=== PATIENT | female | born 1975 | race Caucasian/White ===

== ENCOUNTER 2017-01-13 18:27 | Emergency (ER) | payer MEDICARE ==
--- NOTE | ~2017-01-13 | ER ---
PATIENT'S NAME: MARQUEZ POON [facility] AGE: 41 Y [address] ROOM: [place] [address] LOCATION: [facility] ADMIT DATE: 01/13/2017 ER/Outpatient Report DISCHARGE DATE: 01/13/2017 FAMILY PHYSICIAN: PHYSICIAN, NO ATTENDING PHYSICIAN: Mani Lezama Time of Arrival: 1827 hours. Time of Evaluation: 1850 hours. CHIEF COMPLAINT: This is a 41-year-old female with a history of spina bifida, chronic indwelling Ramirez catheter and repeat urinary infections, in with complaint of suprapubic pain and foul-smelling urine for the past 2 days. She also states that she had a fall 2 days ago and has had pelvic pain since then. 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 CURRENT MEDICATIONS: See list. REVIEW OF SYSTEMS: Otherwise negative. SOCIAL HISTORY: She recently moved to the area. PHYSICAL EXAMINATION: GENERAL: Alert and cooperative female in no acute distress. VITAL SIGNS: Stable. She is afebrile. SKIN: Warm and dry. Color is normal. ABDOMEN: Soft and nontender. BACK: Had previous surgical scars. She had no bruising of her lower back or buttocks. 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 She had incompletely formed inferior pubic rami. A fracture of the TH could not be determined. I questioned the patient regarding previous hospitalizations and visits and the patient refused to answer questions about where she had been seen before and where x-rays could be obtained for comparison. MEDICAL DECISION MAKING: The patient is nonweightbearing. I suspect if the changes on her pelvis x-ray PATIENT'S NAME: MARQUEZ POON [facility] AGE: 41 Y [address] ROOM: [place] [address] LOCATION: [facility] ADMIT DATE: 01/13/2017 ER/Outpatient Report DISCHARGE DATE: 01/13/2017 FAMILY PHYSICIAN: PHYSICIAN, ROXANNA ATTENDING PHYSICIAN: Mani Lezama are old, the radiologist will review the pelvis x-rays. In the meantime, the patient will be treated with Cipro 500 mg 4 times a day for her urinary infection and she will be given small number of Vicodin. I am concerned that the patient is narcotic-seeking given her refusal to answer questions about her previous hospitalization. ASSESSMENT: 1. Urinary tract infection. 2. Fall with resultant pelvis pain. PLAN: As outlined above. MANI LEZAMA MD JDB/modl /[id number] d: 01/14/17 0439 t: 01/16/17 0444, OUTPATIENT REPORT
[2017-01-13 20:30] LABS: BILIRUBIN URINE NEGATIVE (NEGATIVE); BLOOD URINE 10 /UL (NEGATIVE); COLOR URINE YELLOW (YELLOW); GLUCOSE URINE NEGATIVE (NEGATIVE); KETONE URINE 50 mg/dL (NEGATIVE); LEUKOCYTES URINE 500 /UL (NEGATIVE); NITRITE URINE POSITIVE (NEGATIVE); PROTEIN URINE 30 mg/dL (NEGATIVE); SPEC GRAVITY URINE 1.025 (1.003-1.035); TURBIDITY URINE CLEAR (CLEAR); UROBILINOGEN URINE 1 mg/dL (NORMAL)
[2017-01-13 20:51] LABS: WBC URINE 20-50 #/HPF (NEGATIVE)
[2017-01-13 20:52] LABS: AMORPHOUS URINE 2+ (NEGATIVE); BACTERIA URINE MANY (NEGATIVE); CRYSTALS URINE CALCIUM OXALATE (NEGATIVE); MUCUS URINE 3+ (NEGATIVE); YEAST URINE MODERATE (NEGATIVE)
== END 2017-01-13 22:02 | disposition disaster alternative care site (69) ==
LOC: GMED 18:27
PROVIDERS: Emergency Medicine
PROC: 0T2BX0Z Change Drainage Device in Bladder, External Approach (ICD-10-PCS; principal; 2017-01-13)
DX: N39.0 Urinary tract infection, site not specified (principal); R10.2 Pelvic and perineal pain; Z98.2 Presence of cerebrospinal fluid drainage device; Z87.39 Personal history of other diseases of the musculoskeletal system and connective tissue; Z88.0 Allergy status to penicillin; Z88.5 Allergy status to narcotic agent; Z88.8 Allergy status to other drugs, medicaments and biological substances; W19.XXXA Unspecified fall, initial encounter

== ENCOUNTER 2017-01-21 18:28 | Emergency (ER) | payer MEDICARE ==
--- NOTE | ~2017-01-21 | ER ---
PATIENT'S NAME: MARQUEZ POON [facility] AGE: 41 Y [address] ROOM: [place] [address] LOCATION: ED ADMIT DATE: 01/21/2017 ER/Outpatient Report DISCHARGE DATE: 01/21/2017 FAMILY PHYSICIAN: PHYSICIAN, NO ATTENDING PHYSICIAN: Binu Lee Time of Evaluation: 1840 hours. HISTORY OF PRESENT ILLNESS: The patient is a 41-year-old female with history of spina bifida, neurogenic bladder. The patient today while being moved from her wheelchair, her catheter got caught causing some traction on it, causing pain. The patient states she usually gets her catheter replaced every month, and it is almost two. The patient was in the emergency room here recently and was put on Cipro for a UTI; however, she has been unable to afford the medication. ALLERGIES: ALLERGIC TO LATEX. CURRENT MEDICATIONS: She is taking none. MEDICAL HISTORY: Spina bifida, fibromyalgia, depression, posttraumatic stress disorder, chronic anxiety, brittle bone syndrome. She has had previous intracranial bleed, hydrocephalus with MODEL BUILDER shunt, chronic urinary tract infections, urinary and fecal incontinence. SURGERIES: Include right hip. SOCIAL HISTORY: Smoker, half pack a day. Denies alcohol. She states she just recently moved here from [place] and is currently getting no medical care. REVIEW OF SYSTEMS: CONSTITUTIONAL: No fever or chills today. RESPIRATORY: Denies any cough or wheezing. GASTROINTESTINAL: No nausea or vomiting. GENITOURINARY: She has a Ramirez catheter. PHYSICAL EXAMINATION: VITAL SIGNS: Blood pressure 151/80, her temperature is 97.4, pulse 76, her O2 sats 99%. GENERAL: The patient is alert and cooperative. PATIENT'S NAME: MARQUEZ POON [facility] AGE: 41 Y [address] ROOM: [place] [address] LOCATION: [facility] ADMIT DATE: 01/21/2017 ER/Outpatient Report DISCHARGE DATE: 01/21/2017 FAMILY PHYSICIAN: PHYSICIAN, NO ATTENDING PHYSICIAN: Binu Lee HEENT: Teeth appear in poor condition. LUNGS: Lung sounds are clear. ABDOMEN: Slightly tender lower. She has previous scars. Catheter was in place. It did have some blackish material in the catheter. ASSESSMENT: 1. Replace Ramirez catheter. 2. Spina bifida with neurogenic bladder. 3. Brittle bone disease. 4. Depression, anxiety with posttraumatic stress disorder. 5. Previous head bleed. 6. History of hydrocephalus with ventriculoperitoneal shunt. 7. Tobacco abuse. PLAN: The catheter was replaced without much difficulty. [facility]. Continue to work with social service concerning her medical care. CONSTANCE HAAS FOR MD DENA GANNON/[place] /[id number] d: 01/21/172053 t: 01/29/17 1210, OUTPATIENT REPORT
== END 2017-01-21 20:02 | disposition disaster alternative care site (69) ==
LOC: GMED 18:28
PROC: 0T9B70Z Drainage of Bladder with Drainage Device, Via Natural or Artificial Opening (ICD-10-PCS; principal; 2017-01-21)
DX: Z46.6 Encounter for fitting and adjustment of urinary device (principal); Q05.9 Spina bifida, unspecified; Q78.0 Osteogenesis imperfecta; N31.9 Neuromuscular dysfunction of bladder, unspecified; F32.9 Major depressive disorder, single episode, unspecified; F41.9 Anxiety disorder, unspecified; F43.10 Post-traumatic stress disorder, unspecified; F17.210 Nicotine dependence, cigarettes, uncomplicated; Z86.69 Personal history of other diseases of the nervous system and sense organs; Z88.0 Allergy status to penicillin; Z88.5 Allergy status to narcotic agent; Z88.6 Allergy status to analgesic agent; Z87.440 Personal history of urinary (tract) infections; Z98.2 Presence of cerebrospinal fluid drainage device; Z91.040 Latex allergy status

== ENCOUNTER 2017-01-25 15:10 | Emergency (ER) | payer MEDICARE ==
--- NOTE | ~2017-01-25 | ER ---
PATIENT'S NAME: MARQUEZ POON [facility] AGE: 41 Y [address] ROOM: [place] [id number] LOCATION: ED ADMIT DATE: 01/25/2017 ER/Outpatient Report DISCHARGE DATE: 01/25/2017 FAMILY PHYSICIAN: PHYSICIAN, NO ATTENDING PHYSICIAN: Bryan Manning Time of Arrival: 1509 hours. Time of Exam: 1509 hours. CHIEF COMPLAINT: Abdominal pain. HISTORY OF PRESENT ILLNESS: The patient states she has a history of urinary tract infection and has been having abdominal pain for the last 7 days. Reports, she is nauseated, did have some diarrhea this morning. Describes the pain as a crampy-type pain. She was seen here in the ER on 01/13/2017, diagnosed with UTI at that time given prescription for Cipro. She states she never filled it because: 1. She had no money. 2. She states that Cipro never works on her. She was back in the ER on 01/21/2017 and had her Ramirez changed at that time. Did not receive her prescription for any other antibiotics at that time. She reports she has a history of spina bifida with neurogenic bladder and that is why she has the Ramirez to begin with. ALLERGIES: PENICILLIN, CODEINE, TRAMADOL, AND IBUPROFEN. CURRENT MEDICATIONS: None. PAST MEDICAL HISTORY: PTSD with depression and anxiety, spina bifida with neurogenic bladder, hydrocephalus with a POT FLUXER shunt, fibromyalgia, brittle bone syndrome, and history of intracranial bleeding. PAST SURGERIES: Femur fracture in 2009, partial right hip surgery, and POT FLUXER shunt. 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 She is a 4, para 1. SOCIAL HISTORY: PATIENT'S NAME: MARQUEZ POON [facility] AGE: 41 Y [address] ROOM: [place], [place] [address] LOCATION: ED ADMIT DATE: 01/25/2017 ER/Outpatient Report DISCHARGE DATE: 01/25/2017 FAMILY PHYSICIAN: PHYSICIAN, NO ATTENDING PHYSICIAN: Bryan Manning Smokes 1 pack per day. Denies use of drugs or alcohol. REVIEW OF SYSTEMS: All negative other than those mentioned in the HPI. She was scheduled to see Dr. Tres Jenkins on [place], but missed that appointment. She states she did not have any form of transportation to get to that appointment. PHYSICAL EXAMINATION: VITAL SIGNS: She weighed 53.5 kg; blood pressure is 138/64; pulse of 88; respirations 20; temperature of 97.6, tympanic; O2 saturation was 98% on room air. She arrived per EMS. GENERAL: She is awake, alert, and oriented x4. SKIN: [place], warm, and dry. RESPIRATIONS: Even and nonlabored. Lung sounds are clear throughout. HEART: Regular rate and rhythm. ABDOMEN: Soft, nondistended. Bowel sounds are present. She does have a Ramirez cath that is draining yellow clear fluid. EMERGENCY DEPARTMENT COURSE: Saline lock was initiated. Lab work was drawn. CBC shows a white count of 11.7, hemoglobin of 14.1 with hematocrit of 44.4. Chem panel is within normal limits. Lactate was 1.1. Procalcitonin was normal. Catheterized UA was obtained and was positive for leukocytes, positive for nitrites. Micro shows 10-20 whites with many bacteria. Urine was negative. She was given Cipro 400 mg IV. Urine was set up for culture. Care Management was contacted regarding the patient and needed assistance with recurrent frequent visits to the ER. IMPRESSION: Urinary tract infection. PLAN: Prescription was written for Bactrim DS. I did discuss with the patient that it is one of the medications available at [facility] and for free. I stated that she needs to get that filled tomorrow and get started on it. She and her significant other verbalized understanding. LUIS MIGUEL EDMOND APRN FOR DO ANGLE GARDUNO/[place] PATIENT'S NAME: MARQUEZ POON [facility] AGE: 41 Y [address] ROOM: [place], [place] [address] LOCATION: [facility] ADMIT DATE: 01/25/2017 ER/Outpatient Report DISCHARGE DATE: 01/25/2017 FAMILY PHYSICIAN: PHYSICIAN, NO ATTENDING PHYSICIAN: Bryan Manning /[id number] d: 01/26/17 0151 t: 01/30/17 1329, OUTPATIENT REPORT
[2017-01-25 15:52] LABS: BASOPHIL # 0.1 K/uL (0.0-0.2); BASOPHIL % 0.4 %; EOSINOPHIL # 0.1 K/uL (0.0-0.5); EOSINOPHIL % 0.9 %; HEMATOCRIT 44.4 % (33.0-46.0); HEMOGLOBIN 14.1 g/dL (10.0-15.0); IMMATURE GRANULOCYTE # 0.1 K/uL (0.0-0.3); IMMATURE GRANULOCYTE % 0.4 %; LYMPHOCYTE # 1.9 K/uL (0.8-4.0); LYMPHOCYTE % 16.6 %; MCH 27.9 pg (27.0-34.0); MCHC 31.8 gm/dL (32.0-36.5); MCV 87.7 fl (83.0-98.0); MONOCYTE # 0.6 K/uL (0.0-1.0); MONOCYTE % 5.4 %; NEUTROPHIL # (ANC) 8.9 K/uL (1.8-7.8); NEUTROPHIL % 76.3 %; NRBC % 0 /100WBC (0-0.00); PLATELET COUNT 461 K/uL (150-450); RBC 5.06 M/uL (3.50-5.50); WBC 11.7 K/uL (4.0-11.0)
[2017-01-25 15:58] LABS: BILIRUBIN URINE NEGATIVE (NEGATIVE); BLOOD URINE NEGATIVE /UL (NEGATIVE); COLOR URINE YELLOW (YELLOW); GLUCOSE URINE NEGATIVE (NEGATIVE); KETONE URINE NEGATIVE (NEGATIVE); LEUKOCYTES URINE 100 /UL (NEGATIVE); NITRITE URINE POSITIVE (NEGATIVE); PROTEIN URINE NEGATIVE (NEGATIVE); SPEC GRAVITY URINE 1.015 (1.003-1.035); TURBIDITY URINE 4+ (CLEAR); UROBILINOGEN URINE NORMAL (NORMAL)
[2017-01-25 16:08] LABS: ALBUMIN 3.7 gm/dL (3.5-5.0); ALK PHOS 79 IU/L (33-138); ALT 13 IU/L (12-78); ANION GAP 9.9 (10.0-19.0); AST 9 IU/L (10-40); BLOOD UREA NITROGEN 8 mg/dL (6-24); CALCIUM 8.9 mg/dL (8.5-10.5); CHLORIDE 103 mMol/L (96-110); CO2 28 mMol/L (22-32); CREATININE 0.6 mg/dL (0.5-1.1); ESTIMATED GFR (MDRD EQUATION) > 60; POTASSIUM 3.9 mMol/L (3.7-5.1); SODIUM 137 mMol/L (135-145); TOTAL BILIRUBIN 0.3 mg/dL (0.0-1.5); TOTAL PROTEIN 7.9 g/dL (6.0-8.4)
[2017-01-25 16:17] LABS: BACTERIA URINE MANY (NEGATIVE); EPITHELIAL URINE 0-2 #/HPF (NEGATIVE); RBC URINE NEGATIVE #/HPF (NEGATIVE)
[2017-01-25 16:18] LABS: AMORPHOUS URINE 2+ (NEGATIVE)
== END 2017-01-25 18:12 | disposition disaster alternative care site (69) ==
LOC: GMED 15:10
PROVIDERS: Nurse Practitioner Family
DX: N39.0 Urinary tract infection, site not specified (principal); F43.10 Post-traumatic stress disorder, unspecified; F41.9 Anxiety disorder, unspecified; F32.9 Major depressive disorder, single episode, unspecified; F17.210 Nicotine dependence, cigarettes, uncomplicated; G91.9 Hydrocephalus, unspecified; M79.7 Fibromyalgia; Z98.890 Other specified postprocedural states; Z98.2 Presence of cerebrospinal fluid drainage device; Z88.6 Allergy status to analgesic agent; Z88.5 Allergy status to narcotic agent; Z88.0 Allergy status to penicillin
CPT/HCPCS: J0744

== ENCOUNTER → 2017-01-25 | Outpatient (CLI) | payer MEDICARE ==
[~2017-01-25] MED LIST: CEFTIN500 MG PO; NICOTINE PATCH1 EAC2 TRANS; ZYVOX600 MG PO
--- NOTE | 2017-01-26 13:52 | NUR ---
Received call from DARYN Carr in ER late yesterday afternoon concerned about pt frequent ER visits and limited support system in [place] after moving from [place] with mat. Pt has several chronic health issues and questionably compliant with treatment plan. Has indwelling guerrier catheter and reported to ER staff that just went to ER for cath changes in [place]. Pt had not filled previous prescriptions due to cost and having no money. Pt and fivishnu did call a family member from ER to come get them so apparently one of them have family in [place]? Offered to come in to talk with patient vs calling her today to discuss resources, did not want to wait for me to come in to talk with her so I told them I would call her today to discuss resources in [place]. Reviewed chart and called patient on her cell phone [phone], left her a voicemail identifying self and care management services and to call me back at my number so I can assist her with community resources. Waiting call back. If she does not call me back today, I will attempt again next week.
== END | disposition disaster alternative care site (69) ==
LOC: GAMB 14:52
DX: R10.84 Generalized abdominal pain (principal); Q05.9 Spina bifida, unspecified; F43.10 Post-traumatic stress disorder, unspecified; F41.9 Anxiety disorder, unspecified; M79.7 Fibromyalgia; R10.2 Pelvic and perineal pain; Z88.0 Allergy status to penicillin
CPT/HCPCS: A0425; A0429

== ENCOUNTER → 2017-02-06 | Outpatient (CLI) | payer MEDICARE | END | disposition disaster alternative care site (69) | LOC: GAMB 19:15 | DX: F10.129 Alcohol abuse with intoxication, unspecified (principal); F43.10 Post-traumatic stress disorder, unspecified; Q05.9 Spina bifida, unspecified; F41.8 Other specified anxiety disorders; R41.82 Altered mental status, unspecified; Z88.0 Allergy status to penicillin | CPT/HCPCS: A0425; A0427; J2405; J7030 ==

== ENCOUNTER 2017-02-11 01:27 | Inpatient (IN) | payer MEDICARE ==
[~2017-02-11] VITALS: Ht 149.9 cm; Wt 55.8 kg
--- NOTE | ~2017-02-11 | HP ---
PATIENT'S NAME: MARQUEZ POON [facility] AGE: 41 Y [address] ROOM: [place] [id number] LOCATION: [facility] ADMIT DATE: 02/11/2017 History & Physical DISCHARGE DATE: FAMILY PHYSICIAN: PHYSICIAN, NO ATTENDING PHYSICIAN: ANIYA TEJEDA V DATE OF SERVICE: CHIEF COMPLAINT: "Urinary tract infection and dehydration." HISTORY OF PRESENT ILLNESS: The patient is a 41-year-old female with past medical history of spina bifida/hydrocephalus with longstanding indwelling Ramirez. [facility] with complaints of [facility] pain. She was told that she has urinary tract infection. She was prescribed an antibiotic, but did not fill the prescription because of financial reasons. Today, the patient returns to the ER with complaints of abdominal pain, back pain, and no urine output in her Ramirez. Initially in the ER, had a positive urinalysis. She also did not have any significant urine output in the ER. Her Ramirez was changed and the repeat urinalysis was again quite positive. She was given ceftriaxone and was started on fluids. The patient endorses fevers at home though she was afebrile in the ER. REVIEW OF SYSTEMS: All systems have been reviewed and are negative aside from pertinent positives mentioned above. PAST MEDICAL HISTORY: Significant for fibromyalgia, spina bifida, hydrocephalus, PTSD. SOCIAL HISTORY: The patient is a pack-a-day smoker. She denies any illicit drug use. She endorses a sparse social alcohol use. FAMILY HISTORY: Reviewed and is noncontributory. MEDICATIONS: The patient endorses not being on any medications. PHYSICAL EXAMINATION: PATIENT'S NAME: MARQUEZ POON [facility] AGE: 41 Y [address] ROOM: [address] [place] [id number] LOCATION: [facility] ADMIT DATE: 02/11/2017 History & Physical DISCHARGE DATE: FAMILY PHYSICIAN: PHYSICIAN, ROXANNA ATTENDING PHYSICIAN: ANIYA TEJEDA V VITAL SIGNS: Blood pressure of 143/97, temperature 97.5, pulse is 99, respirations are 18, satting 96% on room air. GENERAL: A well-developed, well-nourished foul-smelling middle-aged female, in no acute distress. NEUROLOGIC: Nonfocal. EYES: Show pupils are equal and reactive to light. LYMPHATIC: Shows no cervical lymphadenopathy. ENDOCRINE: Shows no thyromegaly. LUNGS: Clear to auscultation. HEART: Rate is regular. GI: Abdomen is soft, nontender, nondistended. Normoactive bowel sounds. : There is tenderness to palpation to any part of her back, upper, and lower. VASCULAR: 2+ pedal pulses. MUSCULOSKELETAL: Clubbed feet. LABORATORY DATA: Significant for negative lactate. BUN of 30, up from a baseline of 8, creatinine is 0.4. CBC is unremarkable. Urinalysis shows 500 leukocytes, positive nitrites, 20-50 wbc's, 50-100 rbc's. ASSESSMENT AND PLAN: This is a 41-year-old female, who will be admitted with: 1. Urinary tract infection with an indwelling Ramirez. The patient has been started on ceftriaxone in the ER. Prior cultures show poly resistant Proteus as well as poly resistant enterococcus. We will continue the patient on ceftriaxone. We will get a CAT scan to rule out possible pyelo/stone associated with infection. 2. Dehydration based on low urine output and uremia. We will continue the patient on IV fluids. 3. Tobaccoism. We will provide the patient with nicotine patch. 4. Additional management will depend on clinical course. MD SHAWN KING/[place] /[id number] D: [id number] T: [id number] HISTORY & PHYSICAL
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
--- NOTE | ~2017-02-11 | ER ---
PATIENT'S NAME: MARQUEZ CLEARY [facility] AGE: 41 Y [address] ROOM: [place] [address] LOCATION: [facility]PCU ADMIT DATE: 02/11/2017 ER/Outpatient Report DISCHARGE DATE: FAMILY PHYSICIAN: PHYSICIAN, NO ATTENDING PHYSICIAN: ANIYA TEJEDA V CHIEF COMPLAINT: Abdominal pain. HISTORY OF PRESENT ILLNESS: Ms Cleary presents for abdominal pain. It has been present for an indefinite amount of time, but it has been significantly worse over the last 4 days. It is a burning sensation, squeezing sensation. She has a history spina bifida and intracranial hemorrhage with MANAGER ENGAGEMENT shunt. She also has fibromyalgia. She has chronic indwelling Ramirez. She has multiple medication allergies. She has been seen for UTI many times at this hospital recently over the last few months. She has never filled any antibiotics. She states that she cannot even spend four dollars for a prescription. She also thinks that she is resistant to all oral medications. No other acute issues at this time. PAST MEDICAL HISTORY: Documented on the record and reviewed by me. SOCIAL HISTORY: Documented on the record and reviewed by me. MEDICATIONS: Documented on the record and reviewed by me. ALLERGIES: DOCUMENTED ON THE RECORD AND REVIEWED BY ME. REVIEW OF SYSTEMS: All systems reviewed and negative except as noted in the HPI. PHYSICAL EXAMINATION: VITAL SIGNS: Blood pressure 143/97, pulse 99, respiratory rate is 18, temperature 97.5, SpO2 is 96% on room air. Pain is rated at 10/10. GENERAL: An age-appropriate female. She is recumbent on the exam table in no apparent pain, semi sleep. The patient is disheveled and in very poor state of dress and has very poor hygiene. NEUROLOGIC: The patient is awake, she is alert. No mental status abnormalities. The patient has decreased motion of the bilateral lower extremities secondary to her known medical conditions. Decreased sensation as well. No obvious abnormalities otherwise. PATIENT'S NAME: MARQUEZ CLEARY [facility] AGE: 41 Y [address] ROOM: [address] [address] LOCATION: GPCU ADMIT DATE: 02/11/2017 ER/Outpatient Report DISCHARGE DATE: FAMILY PHYSICIAN: PHYSICIAN, NO ATTENDING PHYSICIAN: KAGANANIYA NICHOLSON: Normocephalic, atraumatic. Eyes are PERRL. Oropharynx is clear. NECK: Supple. Trachea is midline. CHEST: Even and unlabored respirations. LUNGS: Grossly clear. HEART: Regular rate and rhythm with no murmurs. ABDOMEN: Soft, nontender, and nondistended. No rebound, guarding, or masses. BACK: Normal to inspection other than expected findings of spina bifida. No focal tenderness appreciated. : Normal female genitalia. Ramirez catheter in place. Significant black discoloration. No significant excoriation or skin breakdown. SKIN: Very dirty, diffusely. EXTREMITIES: Lower extremities are deformed and truncated as expected with spina bifida. LABORATORY DATA AND X-RAYS: No imaging was obtained as part of her emergency department visit. Initial urinalysis from the initial catheter was obtained and was nitrite positive. The catheter was changed and 2nd sample was obtained, it was also nitrite positive. Culture is pending on both samples. Lactate is 0.8. CBC without appreciable abnormalities. CMS with no electrolyte abnormalities. Renal function 0.4 and greater than 90. LFT is unremarkable. IMPRESSION: 1. Abdominal pain, not otherwise specified. 2. Urinary tract infection, likely catheter associated, persistent status post change. 3. Oliguria. 4. Poor hygiene. EMERGENCY DEPARTMENT COURSE: The patient was seen and evaluated as above. She had significant oliguria, only making approximately 20 mL of urine over several hours in the emergency department. The catheter was changed and 2nd urinalysis was obtained consistent with infection. This likely is part of what is causing her discomfort. She has demonstrated inability to comply with outpatient treatment regimens secondary to multifactors. She was observed being abrasive but not abusive in the emergency department. She was otherwise doing well. She was given a total 1 L IV which did seem to make much change in her urine output. She was also given Rocephin for antibiotic management. This was done based on prior cultures. I discussed the case with Dr. Tejeda, hospitalist, who will admit her and obtain CT of the abdomen. All questions answered. The patient was admitted. PATIENT'S NAME: MARQUEZ CLEARY [facility] AGE: 41 Y [address] ROOM: [place] [address] LOCATION: GPCU ADMIT DATE: 02/11/2017 ER/Outpatient Report DISCHARGE DATE: FAMILY PHYSICIAN: PHYSICIANROXANNA ATTENDING PHYSICIAN: ANIYA TEJEDA V EDMUNDO MD AUGUSTA LOBO/[place] /[id number] d: 02/11/17 1237 t: 02/13/17 1244, OUTPATIENT REPORT
[2017-02-11 02:16] LABS: BILIRUBIN URINE NEGATIVE (NEGATIVE); BLOOD URINE 250 /UL (NEGATIVE); COLOR URINE YELLOW (YELLOW); GLUCOSE URINE NEGATIVE (NEGATIVE); KETONE URINE 5 mg/dL (NEGATIVE); LEUKOCYTES URINE 500 /UL (NEGATIVE); NITRITE URINE POSITIVE (NEGATIVE); PROTEIN URINE 30 mg/dL (NEGATIVE); SPEC GRAVITY URINE 1.025 (1.003-1.035); TURBIDITY URINE 2+ (CLEAR); UROBILINOGEN URINE NORMAL (NORMAL)
[2017-02-11 02:28] LABS: BASOPHIL # 0.1 K/uL (0.0-0.2); BASOPHIL % 0.6 %; EOSINOPHIL # 0.3 K/uL (0.0-0.5); EOSINOPHIL % 2.9 %; HEMATOCRIT 35.7 % (33.0-46.0); HEMOGLOBIN 11.6 g/dL (10.0-15.0); IMMATURE GRANULOCYTE % 0.4 %; LYMPHOCYTE # 3.2 K/uL (0.8-4.0); MCH 29.2 pg (27.0-34.0); MCHC 32.5 gm/dL (32.0-36.5); MCV 89.9 fl (83.0-98.0); MONOCYTE # 0.5 K/uL (0.0-1.0); MONOCYTE % 5.5 %; MPV 8.8 fl (9.4-12.4); NEUTROPHIL # (ANC) 5.6 K/uL (1.8-7.8); NEUTROPHIL % 57.6 %; NRBC % 0 /100WBC (0-0.00); RBC 3.97 M/uL (3.50-5.50); RDW-CV 15.6 % (11.9-14.6); WBC 9.7 K/uL (4.0-11.0)
[2017-02-11 02:29] LABS: PLATELET COUNT 360 K/uL (150-450)
[2017-02-11 02:36] LABS: AMORPHOUS URINE 1+ (NEGATIVE); BACTERIA URINE MODERATE (NEGATIVE); RBC URINE 20-50 #/HPF (NEGATIVE); WBC URINE 20-50 #/HPF (NEGATIVE)
[2017-02-11 02:46] LABS: ALBUMIN 2.9 gm/dL (3.5-5.0); ALK PHOS 73 IU/L (33-138); ALT 37 IU/L (12-78); ANION GAP 10.1 (10.0-19.0); AST 19 IU/L (10-40); BLOOD UREA NITROGEN 30 mg/dL (6-24); CALCIUM 7.9 mg/dL (8.5-10.5); CHLORIDE 110 mMol/L (96-110); CO2 26 mMol/L (22-32); CREATININE 0.4 mg/dL (0.5-1.1); POTASSIUM 4.1 mMol/L (3.7-5.1); SODIUM 142 mMol/L (135-145); TOTAL PROTEIN 6.2 g/dL (6.0-8.4)
[2017-02-11 02:47] LABS: TOTAL BILIRUBIN 0.2 mg/dL (0.0-1.5)
[2017-02-11 04:38] LABS: BILIRUBIN URINE NEGATIVE (NEGATIVE); BLOOD URINE 250 /UL (NEGATIVE); COLOR URINE YELLOW (YELLOW); GLUCOSE URINE NEGATIVE (NEGATIVE); KETONE URINE NEGATIVE (NEGATIVE); LEUKOCYTES URINE 500 /UL (NEGATIVE); NITRITE URINE POSITIVE (NEGATIVE); PROTEIN URINE 100 mg/dL (NEGATIVE); SPEC GRAVITY URINE 1.025 (1.003-1.035); TURBIDITY URINE 3+ (CLEAR); UROBILINOGEN URINE NORMAL (NORMAL)
[2017-02-11 04:45] LABS: BACTERIA URINE FEW (NEGATIVE); RBC URINE 50-100 #/HPF (NEGATIVE); WBC URINE 20-50 #/HPF (NEGATIVE)
[2017-02-11 04:46] LABS: AMORPHOUS URINE 1+ (NEGATIVE)
--- NOTE | 2017-02-11 17:24 | NUR ---
Significant Event: PT ADMITTED THIS AM, HAS BEEN PLEASENT AND COOPERATIVE WITH CARES. AID WAS ABLE TO GET HER TO CLEAN UP, CHANGE BRIEFS AND PUT ON A CLEAN GOWN. IV TO RT AC FLUSHES WITH OUT PROBLEMS. PT REQUESTED NICOTENE PATCH THIS AM, ON LT UPPER ARM. PERCOCET FOR PAIN. Follow up: MONITOR
--- NOTE | 2017-02-12 04:25 | NUR ---
Significant Event: Patient alert and oriented. Repositions self. VSS on room air. Percocet given x1 and tylenol given x1 for discomfort with relief noted. Ramirez patient. Dressings to bilateral lower legs changed. Pleasant and cooperative with cares. Follow up: continue to monitor
--- NOTE | 2017-02-12 13:48 | NUR ---
Introduced self and role of care management to patient. She moved to [facility] that a month ago from [place] to come live with her fiance'. She is currently living with her fiance' at his brothers house. She states that she is able to do all her own ADL's. If she needs asssitance she does ask her fiance'. She is wheel chair bound. I asked her about [facility]. She states that she was told she had a UTI and given a scrpt but had no money to fill it. She states that when she leave here if they give her a script she will not be able to fill it d/t having no money. She states that her disablity check is already gone for the month. Her fiance' does not work. She has Medicare and states that she has applied for [place] Medicaid. I explained that we may be able to assist her with her antibiotic on discharge. I did call Dr Dacosta and explained patient had no money to fill her home antibiotic script and asked him to be mindful of the cost. She plans on returning home iwth her fiance' on discharge. Denies any needs at this time. Will continue to follow.
--- NOTE | 2017-02-12 15:05 | NUR ---
(-)MST; WT IS UP FROM 01/25 WT. PT IS ON A REGULAR DIET W/GOOD PO INTAKE. ASSIST NEEDED.
--- NOTE | 2017-02-12 17:10 | NUR ---
Significant Event: PT HAS BEEN VERY PLEASENT AND COOPERATIVE, BOYFRIEND HERE MID SHIFT. WOC NURSE HERE WITH TREATMENTS AND RECOMMENDATIONS. IV TO LT AC PT TAKES PERCOCET Q 8 HOURS FOR FIBROMYALGIA PAIN. VSS. DENIES NEEDS OR C/O Follow up: MONITOR
--- NOTE | 2017-02-13 04:06 | NUR ---
Significant Event: Patient alert and oriented. Repositions self in bed. VSS on room air. Percocet x1 for discomfort. Benadryl one time dose to help with sleeping. Patient was irritated as she wanted to get up and leave room but was hooked up to IV. Physician spoke with patient and patient more calm. Rested throughout shift. Ramirez patent with 3525 ml urine out. Possible discharge 02/13/17. Follow up: continue to monitor
--- NOTE | 2017-02-13 14:56 | NUR ---
A-CONSULT RECEIVED FOR STAGE 2 PRESSURE ULCER TO SACRUM HT: 59 IN. WT: 55.8 KG. BMI: 24.8 LABS REVIEWED MEDS: ROCEPHIN, PERCOCET DIET RX: REGULAR. PO INTAKE HAS BEEN 100% SINCE ADMIT. EST NUTR NEEDS: 1426-1662 KCALS (28-30 KCALS/KG) 67-78 GM PROTEIN (1.2-1.4 GM/KG) 1 ML FLUID/KCAL CURRENT PO INTAKE IS MEETING EST NUTR NEEDS TO PROMOTE WOUND HEALING. KCAL/ PROTEIN INTAKE FOR ONE FULL DAY (02/12) WAS 2447 KCALS AND 112 GM PROTEIN. D-NOT AT NUTRITION RISK AT THIS TIME I-CONTINUE W/CURRENT DIET RX M/E-ASSIST NEEDED
--- NOTE | 2017-02-13 17:39 | NUR ---
Significant Event: VSS ON RA. AFEBRILE. 1 TAB PERCOCET GIVEN X2 LAST AROUND 1730 FOR BACK PAIN WITH RELIEF NOTED. NEW PIV TO LEFT FA, NOW SL'D. PIV TO LEFT AC DC'D PER PATIENT REQUEST. BENITEZ CATHETER TO DD WITH 1325ML CLEAR, YELLOW UOP. REPEAT CT ABD/PELVIS TODAY WITH NO KIDNEY STONE PRESENT AND NO HYDRONEPHROSIS NOTED. Follow up: PLAN TO DC HOME TOMORROW. MSU STATUS WITH ORDERS TO TRANSFER THIS EVENING IF BED NEEDED.
--- NOTE | 2017-02-14 03:05 | NUR ---
Significant Event: Patient alert and oriented. VSS on room air. Tylenol and percocet each given x1 for complaints of pain. Aqua K pad to abdomen and back for comfort as well. Rested throughout shift. Pleasant and cooperative with cares. Follow up: continue to monitor
--- NOTE | 2017-02-14 10:30 | NUR ---
Received call from Dr Dacosta that he is discharging patient to home today. He states that he has to place her on Zyvox for best antibiotic coverage. I explained to him we will need to fill aboth antibiotic scripts here. I called and spoke with the pharmacist on PCU and explained that d/t financial reasons patient is unable to fill her antibiotic scripts and will need to be fill here. Scripts tubed down to pharmacy.
[2017-02-14] MEDS ORDERED: NICOTINE PATCH1 EAC2 TRANS (10:52)
[2017-02-14] MEDS ORDERED: CEFTIN500 MG PO (10:53)
[2017-02-14] MEDS ORDERED: ZYVOX600 MG PO (10:54)
--- NOTE | 2017-02-14 13:05 | NUR ---
PATIENT GIVEN WRITTEN DISMISSAL INSTRUCTIONS INCLUDING NEW HOME MEDICATION LIST WITH INFORMATION ON NEW MEDS, PRESCRIPTION PAPERS, FOLLOW-UP APPOINTMENT TIME WITH HELP CARE CLINIC NEXT WEEK, AND INSTRUCTIONS/DEMONSTRATION ON HOW TO CARE FOR WOUNDS TO BLE WITH DAILY DRESSING CHANGES(VASOLINE GAUZE AND WRAP). PATIENT PASSIVE ABOUT DISMISSAL INSTRUCTIONS DISCUSSED WITH RN. PHARMACY BROUGHT UP ANTIBIOTICS FILLED D/T PATIENT FINANCIAL STATUS AND INSTRUCTED ON USE AND DOSAGE. PIV REMOVED FROM LEFT FOREARM WITH GAUZE AND COBAN APPLIED. PATIENT DRESSED AND PLACED IN PERSONAL WHEELCHAIR. TAKEN TO FRONT OF [facility] WITH FRIENDAND BELONGINGS AT 1230.
== END 2017-02-14 12:30 | disposition disaster alternative care site (69) | DRG 699 ==
LOC: GMED 01:27 → GPCU 05:20
PROVIDERS: Emergency Medicine; ADMIT Internal Medicine
DX: T83.511A Infection and inflammatory reaction due to indwelling urethral catheter, initial encounter (principal); N13.6 Pyonephrosis; L89.152 Pressure ulcer of sacral region, stage 2; E86.0 Dehydration; L98.9 Disorder of the skin and subcutaneous tissue, unspecified; T24.009 Burn of unspecified degree of unspecified site of unspecified lower limb, except ankle and foot; B95.2 Enterococcus as the cause of diseases classified elsewhere; E66.9 Obesity, unspecified; B96.4 Proteus (mirabilis) (morganii) as the cause of diseases classified elsewhere; F17.210 Nicotine dependence, cigarettes, uncomplicated; R46.0 Very low level of personal hygiene; Q05.9 Spina bifida, unspecified; Z16.24 Resistance to multiple antibiotics
CPT/HCPCS: G0378; J0696; J2405; J7030; J7040; J7050

== ENCOUNTER 2017-02-14 14:11 | Emergency (ER) | payer MEDICARE ==
--- NOTE | ~2017-02-14 | ER ---
PATIENT'S NAME: MARQUEZ POON [facility] AGE: 41 Y [address] ROOM: [place] [address] LOCATION: ED ADMIT DATE: 02/14/2017 ER/Outpatient Report DISCHARGE DATE: 02/14/2017 FAMILY PHYSICIAN: PHYSICIAN, NO ATTENDING PHYSICIAN: Bob Medrano CHIEF COMPLAINT: Diarrhea. HISTORY OF PRESENT ILLNESS: Ms. Poon presents for evaluation of diarrhea. She was admitted to the hospital recently for UTI. She stated that she was discharged from the hospital around noon and came directly to the emergency department. She states that the Inpatient Unit did not listen to her and she always gets diarrhea whenever she has antibiotics for UTIs. Her medical history is complicated by spina bifida. She recently moved to the [facility]. She denies any fevers, chills, or other new complaints or concerns. PAST MEDICAL HISTORY: Documented on the record and reviewed by me. SOCIAL HISTORY: Documented on the record and reviewed by me. MEDICATIONS: Documented on the record and reviewed by me. ALLERGIES: DOCUMENTED ON THE RECORD AND REVIEWED BY ME. REVIEW OF SYSTEMS: All systems reviewed and negative except as noted in the HPI. PHYSICAL EXAMINATION: VITAL SIGNS: Blood pressure 150/69, pulse is 83, respiratory rate 16, temp 98.2, and SpO2 is 92% on room air. Pain is rated 4/10. GENERAL: An age-appropriate female, in no obvious pain or distress, recumbent on the exam table. NEUROLOGIC: Awake and alert. No focal deficits appreciated. Exam is expected for spina bifida patient. HEENT: Normocephalic, atraumatic. Eyes are PERRL. Oropharynx is clear. NECK: Supple. Trachea is midline. CHEST: Heart is regular rate and rhythm with no murmurs. LUNGS: Grossly clear to auscultation bilateral. No rhonchi, wheezes, or rales. PATIENT'S NAME: MARQUEZ [facility] AGE: 41 Y [address] ROOM: [place] [address] LOCATION: [facility] ADMIT DATE: 02/14/2017 ER/Outpatient Report DISCHARGE DATE: 02/14/2017 FAMILY PHYSICIAN: PHYSICIAN, NO ATTENDING PHYSICIAN: Bob Medrano ABDOMEN: Benign. EXTREMITIES: Warm and appear to be well-perfused. SKIN: Grossly intact, bandages to bilateral feet not removed. LABS AND X-RAYS: Stool studies negative for C. diff, Cryptosporidium, and Giardia. No fecal leukocytes and no occult blood. EMERGENCY DEPARTMENT COURSE: The patient was seen and evaluated. She does have some risk factors for C. diff; however, she is not positive at this time. She is hemodynamically stable and well-hydrated. I recommend that she go fill her prescriptions for her antibiotics and probiotics. She is to take them as directed by her discharge physician. She can return as needed, all questions were answered, and the patient was discharged in good condition. MD AUGUSTA AG/tennille /[id number] d: 02/15/17 0354 t: 02/24/17 0722, OUTPATIENT REPORT
== END 2017-02-14 16:30 | disposition disaster alternative care site (69) ==
LOC: GMED 14:11
PROC: 0T9B70Z Drainage of Bladder with Drainage Device, Via Natural or Artificial Opening (ICD-10-PCS; principal; 2017-02-14)
DX: R19.7 Diarrhea, unspecified (principal); F17.210 Nicotine dependence, cigarettes, uncomplicated; F32.9 Major depressive disorder, single episode, unspecified; F41.9 Anxiety disorder, unspecified; M79.7 Fibromyalgia; F43.10 Post-traumatic stress disorder, unspecified; Q05.9 Spina bifida, unspecified; Z87.440 Personal history of urinary (tract) infections; Z88.0 Allergy status to penicillin; Z88.6 Allergy status to analgesic agent; Z88.5 Allergy status to narcotic agent; Z79.899 Other long term (current) drug therapy

== ENCOUNTER 2017-03-03 23:57 | Emergency (ER) | payer MEDICARE ==
--- NOTE | ~2017-03-03 | ER ---
PATIENT'S NAME: MARQUEZ POON [facility] AGE: 41 Y [address] ROOM: [place] [address] LOCATION: [facility] ADMIT DATE: 03/03/2017 ER/Outpatient Report DISCHARGE DATE: 03/04/2017 FAMILY PHYSICIAN: PHYSICIAN, NO ATTENDING PHYSICIAN: Binu Lee Admission date and time were documented on the medical record. I saw the patient at 0010 hours. CHIEF COMPLAINT: Not feeling well, nausea, vomiting, and chills. HISTORY OF PRESENT ILLNESS: This patient is a 41-year-old female, who states that she has not felt well since around 1800 hours this evening. She has had decreased urine output in her urinary catheter. She had some kind of generalized abdominal pain. She has had 2 episodes of vomiting, nausea, and some chills. No documented fever. No chest pain or shortness of breath. No fall or trauma. HOME MEDICATIONS: None. ALLERGIES: PENICILLIN, CODEINE, TRAMADOL, AND IBUPROFEN. SOCIAL HISTORY: The patient smokes a pack of cigarettes a day, occasional intake of alcohol. SIGNIFICANT PAST MEDICAL HISTORY: 1. Fibromyalgia. 2. Spina bifida. 3. Hydrocephalus. 4. Posttraumatic stress disorder. 5. Depression. 6. Anxiety. 7. Tobacco abuse. OPERATIONS: 1. CLINICAL IMPLEMENTATION SPECIALIST shunt placement. 2. Leg surgeries. REVIEW OF SYSTEMS: All systems reviewed by me are negative with the exception of those discussed in the history of the present illness. PATIENT'S NAME: MARQUEZ POON [facility] AGE: 41 Y [address] ROOM: [place] [address] LOCATION: [facility] ADMIT DATE: 03/03/2017 ER/Outpatient Report DISCHARGE DATE: 03/04/2017 FAMILY PHYSICIAN: PHYSICIAN, NO ATTENDING PHYSICIAN: Binu Lee PHYSICAL EXAMINATION: VITAL SIGNS: Temperature 97.7 tympanic, pulse 118, respirations 22, blood pressure 143/66, and O2 saturation on room air is 97%. HEAD: Normocephalic. EYES, EARS, NOSE, AND THROAT: Clear. Mucous membranes a little dry. NECK: Negative. LUNGS: Clear. HEART: Regular. ABDOMEN: Soft and nondistended. Some mild tenderness. No true guarding or rigidity. No rebound tenderness. Active bowel tones. No organomegaly or abnormal masses are palpable. SKIN: Clear. DIAGNOSTIC DATA: Urinary specimen from her catheter showed 20 to 50 wbc's, 5 to 10 rbc's, 5 to 10 epithelial cells, many bacteria, 1+ amorphous material per high-powered field, and positive nitrites. On dipstick, culture pending. White count was 9000, 55 segs, 36 lymphs, 6 monos, 3 eos, and 1 baso, hemoglobin 12.7, hematocrit 38.4, and platelet count is 404,000. CMS was normal except for a low potassium of 3.2, elevated chloride of 113, low CO2 content of 17, low calcium of 9.2, and CRP was 1.16. EMERGENCY DEPARTMENT COURSE: I did give the patient 2 L of normal saline IV here in the Emergency Room. IMPRESSION: 1. Nausea with vomiting and chills. 2. Mild dehydration with possible urinary tract infection. Culture pending. PLAN: The patient was discharged home. Observation. Activity as tolerated. Fluids, diet as tolerated. Zofran as needed for nausea and vomiting. Follow up with personal physician in 2 to 3 days. MD DANIEL GANNON/modl /[id number] d: 03/04/176 t: 03/06/17 1805, OUTPATIENT REPORT
[2017-03-04 00:45] LABS: BASOPHIL # 0.1 K/uL (0.0-0.2); EOSINOPHIL # 0.3 K/uL (0.0-0.5); HEMATOCRIT 38.4 % (33.0-46.0); HEMOGLOBIN 12.7 g/dL (10.0-15.0); IMMATURE GRANULOCYTE % 0.2 %; LYMPHOCYTE # 3.2 K/uL (0.8-4.0); LYMPHOCYTE % 35.7 %; MCH 29.1 pg (27.0-34.0); MCHC 33.1 gm/dL (32.0-36.5); MCV 88.1 fl (83.0-98.0); MONOCYTE # 0.5 K/uL (0.0-1.0); MONOCYTE % 5.6 %; MPV 9.5 fl (9.4-12.4); NEUTROPHIL # (ANC) 4.9 K/uL (1.8-7.8); NEUTROPHIL % 54.5 %; NRBC % 0 /100WBC (0-0.00); PLATELET COUNT 404 K/uL (150-450); RBC 4.36 M/uL (3.50-5.50); RDW-CV 15.6 % (11.9-14.6)
[2017-03-04 00:47] LABS: BILIRUBIN URINE NEGATIVE (NEGATIVE); BLOOD URINE 50 /UL (NEGATIVE); COLOR URINE YELLOW (YELLOW); GLUCOSE URINE NEGATIVE (NEGATIVE); KETONE URINE 5 mg/dL (NEGATIVE); LEUKOCYTES URINE 500 /UL (NEGATIVE); NITRITE URINE POSITIVE (NEGATIVE); PROTEIN URINE 30 mg/dL (NEGATIVE); SPEC GRAVITY URINE 1.025 (1.003-1.035); TURBIDITY URINE 3+ (CLEAR); UROBILINOGEN URINE NORMAL (NORMAL)
[2017-03-04 00:50] LABS: WBC URINE 20-50 #/HPF (NEGATIVE)
[2017-03-04 00:52] LABS: AMORPHOUS URINE 1+ (NEGATIVE); BACTERIA URINE MANY (NEGATIVE)
[2017-03-04 01:03] LABS: ALK PHOS 67 IU/L (33-138); ALT 16 IU/L (12-78); AST 15 IU/L (10-40); BLOOD UREA NITROGEN 12 mg/dL (6-24); CALCIUM 8.2 mg/dL (8.5-10.5); CHLORIDE 113 mMol/L (96-110); CREATININE 0.5 mg/dL (0.5-1.1); POTASSIUM 3.2 mMol/L (3.7-5.1); SODIUM 145 mMol/L (135-145); TOTAL PROTEIN 6.5 g/dL (6.0-8.4)
[2017-03-04 01:09] LABS: ANION GAP 18.2 (10.0-19.0); CO2 17 mMol/L (22-32); TOTAL BILIRUBIN 0.1 mg/dL (0.0-1.5)
== END 2017-03-04 03:01 | disposition disaster alternative care site (69) ==
LOC: GMED 23:57
PROVIDERS: Emergency Medicine
DX: E86.0 Dehydration (principal); R11.2 Nausea with vomiting, unspecified; R68.83 Chills (without fever); F43.10 Post-traumatic stress disorder, unspecified; F41.9 Anxiety disorder, unspecified; F32.9 Major depressive disorder, single episode, unspecified; F17.210 Nicotine dependence, cigarettes, uncomplicated; Z88.0 Allergy status to penicillin; Z88.5 Allergy status to narcotic agent; Z88.6 Allergy status to analgesic agent; Z98.2 Presence of cerebrospinal fluid drainage device; Z98.890 Other specified postprocedural states
CPT/HCPCS: J2405; J7030

== ENCOUNTER 2017-03-11 17:41 | Emergency (ER) | payer MEDICARE ==
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
[2017-03-11 18:32] LABS: BASOPHIL # 0.1 K/uL (0.0-0.2); BASOPHIL % 0.7 %; EOSINOPHIL # 0.1 K/uL (0.0-0.5); EOSINOPHIL % 1.7 %; HEMATOCRIT 39.5 % (33.0-46.0); HEMOGLOBIN 13.1 g/dL (10.0-15.0); IMMATURE GRANULOCYTE % 0.3 %; LYMPHOCYTE # 1.9 K/uL (0.8-4.0); LYMPHOCYTE % 26.4 %; MCH 28.9 pg (27.0-34.0); MCHC 33.2 gm/dL (32.0-36.5); MCV 87.2 fl (83.0-98.0); MONOCYTE # 0.5 K/uL (0.0-1.0); MONOCYTE % 7.6 %; MPV 9.1 fl (9.4-12.4); NEUTROPHIL # (ANC) 4.5 K/uL (1.8-7.8); NEUTROPHIL % 63.3 %; NRBC % 0 /100WBC (0-0.00); PLATELET COUNT 314 K/uL (150-450); RBC 4.53 M/uL (3.50-5.50); RDW-CV 15.9 % (11.9-14.6); WBC 7.1 K/uL (4.0-11.0)
[2017-03-11 18:51] LABS: ALBUMIN 3.4 gm/dL (3.5-5.0); ALK PHOS 78 IU/L (33-138); ALT 16 IU/L (12-78); ANION GAP 12.1 (10.0-19.0); AST 13 IU/L (10-40); BLOOD UREA NITROGEN 21 mg/dL (6-24); CALCIUM 8.6 mg/dL (8.5-10.5); CHLORIDE 105 mMol/L (96-110); CO2 28 mMol/L (22-32); CREATININE 0.5 mg/dL (0.5-1.1); POTASSIUM 4.1 mMol/L (3.7-5.1); SODIUM 141 mMol/L (135-145); TOTAL PROTEIN 6.7 g/dL (6.0-8.4)
[2017-03-11 18:52] LABS: TOTAL BILIRUBIN 0.4 mg/dL (0.0-1.5)
[2017-03-11 19:36] LABS: BILIRUBIN URINE NEGATIVE (NEGATIVE); BLOOD URINE 250 /UL (NEGATIVE); COLOR URINE YELLOW (YELLOW); GLUCOSE URINE NEGATIVE (NEGATIVE); KETONE URINE 15 mg/dL (NEGATIVE); LEUKOCYTES URINE 25 /UL (NEGATIVE); NITRITE URINE NEGATIVE (NEGATIVE); PROTEIN URINE 500 mg/dL (NEGATIVE); SPEC GRAVITY URINE 1.025 (1.003-1.035); TURBIDITY URINE 1+ (CLEAR); UROBILINOGEN URINE NORMAL (NORMAL)
[2017-03-11 19:49] LABS: BACTERIA URINE FEW (NEGATIVE); MUCUS URINE 2+ (NEGATIVE)
== END 2017-03-11 21:00 | disposition disaster alternative care site (69) ==
LOC: GMED 17:41
PROVIDERS: Emergency Medicine
DX: R06.02 Shortness of breath (principal); T24.002D Burn of unspecified degree of unspecified site of left lower limb, except ankle and foot, subsequent encounter; T24.001D Burn of unspecified degree of unspecified site of right lower limb, except ankle and foot, subsequent encounter; F41.9 Anxiety disorder, unspecified; F32.9 Major depressive disorder, single episode, unspecified; D64.9 Anemia, unspecified; Z98.2 Presence of cerebrospinal fluid drainage device; F17.210 Nicotine dependence, cigarettes, uncomplicated; Z88.0 Allergy status to penicillin; Z88.5 Allergy status to narcotic agent; Z88.6 Allergy status to analgesic agent; Z91.040 Latex allergy status
CPT/HCPCS: J3010; J7030

== ENCOUNTER 2017-03-12 16:46 | Emergency (ER) | payer MEDICARE ==
--- NOTE | ~2017-03-12 | ER ---
PATIENT'S NAME: MARQUEZ POON [facility] AGE: 41 Y [address] ROOM: [place] [address] LOCATION: [facility] ADMIT DATE: 03/12/2017 ER/Outpatient Report DISCHARGE DATE: 03/12/2017 FAMILY PHYSICIAN: PHYSICIAN, NO ATTENDING PHYSICIAN: Bryan Manning Time of Arrival: Time of Evaluation: Seen at 1700 hours. HISTORY OF PRESENT ILLNESS: The patient is a 41-year-old female, well known to the emergency room. The patient returns tonight requesting replacement of her catheter. The patient was in last night and a nursing personnel were unable to place a 20-Swazi catheter that she usually use, so they put in a smaller one. The patient states that she has continued to leak around the calf today. She denies any fever, chills, or vomiting. PAST MEDICAL HISTORY: ALLERGIES: THE PATIENT HAS A LATEX ALLERGY. SHE IS ALLERGIC TO MACRODANTIN, TRAMADOL, CIPRO, PENICILLIN, AND IBUPROFEN. CURRENT MEDICATIONS: She list as none. MEDICAL HISTORY: Includes: 1. Spina bifida at . 2. Hydrocephalus. 3. Depression. 4. Post-traumatic stress disorder. 5. Chronic anxiety. SOCIAL HISTORY: History of tobacco use. Also alcohol. REVIEW OF SYSTEMS: GENERAL: No fevers or chills. RESPIRATORY: Negative. CARDIOVASCULAR: Negative. GASTROINTESTINAL: No nausea, no vomiting. No abdominal pain. GENITOURINARY: Has a Ramirez catheter in place, but she has been leaking around the catheter. SKIN: She has two open areas on both lower extremities. There require daily PATIENT'S NAME: MARQUEZ POON [facility] AGE: 41 Y [address] ROOM: [place] [address] LOCATION: [facility] ADMIT DATE: 03/12/2017 ER/Outpatient Report DISCHARGE DATE: 03/12/2017 FAMILY PHYSICIAN: PHYSICIAN, NO ATTENDING PHYSICIAN: Bryan Manning dressing. ASSESSMENT: 1. Replace the Ramirez catheter. 2. History of spina bifida with neurological insult. 3. Depression. 4. Post-traumatic stress disorder. 5. History of hydrocephalus. PLAN: An attempt was made with a 20-Swazi catheter, which was unable to relocate the catheter. The smaller catheter then was replaced. The patient was given a card for Urology to call in the morning. CONSTANCE HAAS FOR DO DENA GARDUNO/modl /[id number] d: 03/12/17 2259 t: 03/19/17 1216, OUTPATIENT REPORT
== END 2017-03-12 18:37 | disposition disaster alternative care site (69) ==
LOC: GMED 16:46
DX: T83.038A Leakage of other urinary catheter, initial encounter (principal); F32.9 Major depressive disorder, single episode, unspecified; Q05.4 Unspecified spina bifida with hydrocephalus; F43.10 Post-traumatic stress disorder, unspecified; F41.9 Anxiety disorder, unspecified; Z88.0 Allergy status to penicillin; Z88.1 Allergy status to other antibiotic agents; Z79.1 Long term (current) use of non-steroidal anti-inflammatories (NSAID); Z91.040 Latex allergy status; Z88.5 Allergy status to narcotic agent; Z87.891 Personal history of nicotine dependence

== ENCOUNTER 2017-03-19 23:43 | Emergency (ER) | payer MEDICARE ==
--- NOTE | ~2017-03-19 | ER ---
PATIENT'S NAME: MARQUEZ POON [facility] AGE: 41 Y [address] ROOM: [place] [address] LOCATION: [facility] ADMIT DATE: 03/19/2017 ER/Outpatient Report DISCHARGE DATE: 03/20/2017 FAMILY PHYSICIAN: PHYSICIAN, NO ATTENDING PHYSICIAN: Viri Doherty HISTORY OF PRESENT ILLNESS: A 41-year-old female, who is well-known to this ER, who presents today with abdominal pain and distention that started approximately 6 hours ago. She has had nausea and vomiting x2. She says she is concerned that she is constipated. She says she has an issue with fecal incontinence, but has not been going for a while or has not had irregular bowel movements, the last bowel movement was about 8 hours ago. She denies any fever or chills. No urinary frequency or urgency. No pain with urination. No dysuria. She has an indwelling Ramirez, which was replaced about a month ago. She says that the urine has not been cloudy or anything like that. She initially said that she woke up when this pain started feeling like someone was pulling on her catheter, but she knows it is in place because it is draining appropriately but then she felt very distended after. PAST MEDICAL HISTORY: Includes hydrocephalus, spina bifida, wheelchair-bound, fibromyalgia, hypoglycemia, PTSD, depression, anxiety. PAST SURGICAL HISTORY: Includes DENTAL DETAIL REPRESENTATIVE shunt; back surgery; leg surgeries include bilateral rods in femur; partial hip. SOCIAL HISTORY: She smokes one pack per day and has done so for 30 years. She drinks alcohol daily. She drinks 4 mixed drinks a day. Denies any drug use. MEDICATIONS: None at this time. ALLERGIES: PLEASE SEE MED LIST. REVIEW OF SYSTEMS: Reviewed by me and negative with the exception of those discussed in the HPI. PHYSICAL EXAMINATION: VITAL SIGNS: The patient is 4 feet 11 inches, she weighs 44.1 kilos, blood pressure is 147/94, heart rate 91, respiratory rate 18, temp is 96.9, sats are 98% on room air. PATIENT'S NAME: MARQUEZ POON [facility] AGE: 41 Y [address] ROOM: [place] [address] LOCATION: ED ADMIT DATE: 03/19/2017 ER/Outpatient Report DISCHARGE DATE: 03/20/2017 FAMILY PHYSICIAN: PHYSICIAN, NO ATTENDING PHYSICIAN: Viri Doherty GENERAL: The patient does not appear toxic. She smells really malodorous, though like cigarette, and she has poor hygiene as well. She is otherwise alert and speaking in full sentences. She does not appear toxic or lethargic. HEART: Heart rate is regular rate and rhythm. LUNGS: Her lung sounds sound clear. ABDOMEN: She has clearly generalized tenderness, although this seems distractible. She does appear mildly distended. She has normoactive bowel sounds though. She has no CVA tenderness. : Ramirez is in place. LABORATORY DATA AND X-RAYS: Bedside ultrasound done, on that Ramirez is in place and the bladder is collapsed around the ultrasound. EMERGENCY ROOM COURSE: An IV was established. The patient was given Zofran and Merrill for pain. We checked some blood work. We checked a CBC, which showed a white count of 8.6, H and H are 13 and 40.1, platelets are 360. Lactic acid is 1.3. Procalcitonin is less than 0.05. CMS shows a sodium 143, potassium of 4, chloride 110, CO2 of 27, anion gap 10, BUN 5, creatinine 0.4. Bilirubin is 0.2, alkaline phosphatase is 101, AST 16, ALT 15, GFR greater than 90. A CT abdomen and pelvis was done, which showed mild stool in the colon, especially in the descending and sigmoid colon likely secondary to constipation. She also has bladder wall thickening without inflammation that is likely neurogenic in origin and multiple stable chronic findings. Discussed this with the patient. We will be giving her a bottle of mag citrate, and I will write her script for MiraLAX and told her to avoid any constipating medications like any narcotic. She understands this and will follow up appropriately. I also recommend that she follow up with the primary care doctor. IMPRESSION: Abdominal pain, constipation. MD GRISELDA MARTINEZ/tennille /[id number] d: 03/20/17 0430 t: 03/21/17 0608, OUTPATIENT REPORT
[2017-03-20 00:37] LABS: BASOPHIL % 0.5 %; EOSINOPHIL # 0.2 K/uL (0.0-0.5); EOSINOPHIL % 1.7 %; HEMATOCRIT 40.1 % (33.0-46.0); IMMATURE GRANULOCYTE % 0.5 %; LYMPHOCYTE # 1.9 K/uL (0.8-4.0); MCH 29.1 pg (27.0-34.0); MCHC 32.4 gm/dL (32.0-36.5); MCV 89.9 fl (83.0-98.0); MONOCYTE # 0.5 K/uL (0.0-1.0); MONOCYTE % 6.2 %; MPV 9.2 fl (9.4-12.4); NEUTROPHIL % 69.1 %; NRBC % 0 /100WBC (0-0.00); PLATELET COUNT 360 K/uL (150-450); RBC 4.46 M/uL (3.50-5.50); RDW-CV 17.7 % (11.9-14.6); WBC 8.6 K/uL (4.0-11.0)
[2017-03-20 00:57] LABS: ALBUMIN 3.2 gm/dL (3.5-5.0); ALK PHOS 101 IU/L (33-138); ALT 50 IU/L (12-78); AST 16 IU/L (10-40); BLOOD UREA NITROGEN 5 mg/dL (6-24); CALCIUM 8.3 mg/dL (8.5-10.5); CHLORIDE 110 mMol/L (96-110); CO2 27 mMol/L (22-32); CREATININE 0.4 mg/dL (0.5-1.1); SODIUM 143 mMol/L (135-145); TOTAL PROTEIN 7.5 g/dL (6.0-8.4)
[2017-03-20 01:05] LABS: TOTAL BILIRUBIN 0.2 mg/dL (0.0-1.5)
== END 2017-03-20 02:17 | disposition disaster alternative care site (69) ==
LOC: GMED 23:43
PROVIDERS: Emergency Medicine
DX: K59.00 Constipation, unspecified (principal); F41.9 Anxiety disorder, unspecified; F32.9 Major depressive disorder, single episode, unspecified; F43.10 Post-traumatic stress disorder, unspecified; Q05.9 Spina bifida, unspecified; F17.210 Nicotine dependence, cigarettes, uncomplicated; M79.7 Fibromyalgia; Z98.890 Other specified postprocedural states; Z88.0 Allergy status to penicillin; Z88.5 Allergy status to narcotic agent; Z88.1 Allergy status to other antibiotic agents
CPT/HCPCS: Q9967

== ENCOUNTER 2017-03-22 06:23 | Emergency (ER) | payer MEDICARE ==
--- NOTE | ~2017-03-22 | ER ---
PATIENT'S NAME: MARQUEZ CLEARY [facility] AGE: 41 Y [address] ROOM: [place] [address] LOCATION: ED ADMIT DATE: 03/22/2017 ER/Outpatient Report DISCHARGE DATE: 03/22/2017 FAMILY PHYSICIAN: PHYSICIAN, NO ATTENDING PHYSICIAN: Bob Medrano CHIEF COMPLAINT: Vomiting. HISTORY OF PRESENT ILLNESS: Ms. Cleary developed vomiting this morning around 4 a.m. She has vomited a few times. She states that her abdominal pain that she was seen in the ER for 3 days ago is unchanged. She has been taking the magnesium citrate once and using MiraLax once a day. She denies any other fevers, chills, or other new symptoms. PAST MEDICAL HISTORY: Documented on the record and reviewed by me. SOCIAL HISTORY: Documented on the record and reviewed by me. MEDICATIONS: Documented on the record and reviewed by me. ALLERGIES: DOCUMENTED ON THE RECORD AND REVIEWED BY ME. REVIEW OF SYSTEMS: All systems reviewed and negative except as noted in the HPI. PHYSICAL EXAMINATION: VITAL SIGNS: Blood pressure 163/88, pulse is 75, respiratory rate 16, temperature 98.1, SpO2 is 97% on room air. Pain appears to be 0/10. GENERAL: Age-appropriate female, recumbent on exam table. No apparent pain or distress. Somnolent. NEUROLOGIC: Awake and alert. GCS of 15. Normal upper neuro exam, deformities and complications of spina bifida make lower extremity exam difficult. HEENT: Normocephalic, atraumatic. Eyes are PERRL. Oropharynx is clear. NECK: Supple. Trachea is midline. CHEST/HEART: Regular rate and rhythm with no murmurs. LUNGS: Clear to auscultation bilaterally. No rhonchi, wheezes, or rales. ABDOMEN: Slightly distended, but soft. No focal tenderness. No rebound or guarding. Bowel sounds are heard most prominently in the bilateral lower PATIENT'S NAME: MARQUEZ CLEARY [facility] AGE: 41 Y [address] ROOM: [place], [place] [address] LOCATION: ED ADMIT DATE: 03/22/2017 ER/Outpatient Report DISCHARGE DATE: 03/22/2017 FAMILY PHYSICIAN: PHYSICIAN, NO ATTENDING PHYSICIAN: Bob Medrano quadrants. BACK: Grossly normal. SKIN: Dirty with poor hygiene, but no rashes obvious. Skin is otherwise intact. EXTREMITIES: Warm and well perfused, bandages to the bilateral lower extremities not removed. LABS AND X-RAYS: Plain films of the abdomen did not reveal any bowel obstruction. Significant stool load with gas, but no bowel obstruction. CBC; white count is up to 12.8, hemoglobin is 12.12, and platelets of 383. CMS with no appreciable changes. Potassium slightly low at 3.3, glucose is 106, BUN is 10, creatinine 0.4. LFTs grossly unremarkable. IMPRESSION: 1. Nausea and vomiting. 2. Constipation. EMERGENCY DEPARTMENT COURSE: The patient was seen and evaluated as above. She has no emergency medical condition at this time. She states she is passing gas, but no stool since before last evaluation. She states that she is not forcing herself to stool as that causes her to have some incontinence around her chronic indwelling Ramirez catheter related to her spina bifida and neurogenic bladder. She was given enema with no significant improvement. She was feeling better after some Zofran. I will give her prescription for Zofran to be filled if needed. Recommend titration of her stool softeners to adequate bowel movements. Follow up with healthcare as needed. Return if worse. MD AUGUSTA AG/tennille /[id number] d: 03/22/17 1452 t: 03/27/17 0642, OUTPATIENT REPORT
[2017-03-22 06:59] LABS: BASOPHIL # 0.1 K/uL (0.0-0.2); BASOPHIL % 0.4 %; EOSINOPHIL # 0.1 K/uL (0.0-0.5); HEMATOCRIT 36.6 % (33.0-46.0); HEMOGLOBIN 12.2 g/dL (10.0-15.0); IMMATURE GRANULOCYTE # 0.1 K/uL (0.0-0.3); IMMATURE GRANULOCYTE % 0.5 %; LYMPHOCYTE % 15.3 %; MCH 29.7 pg (27.0-34.0); MCHC 33.3 gm/dL (32.0-36.5); MCV 89.1 fl (83.0-98.0); MONOCYTE # 0.9 K/uL (0.0-1.0); MONOCYTE % 7.3 %; MPV 9.1 fl (9.4-12.4); NEUTROPHIL # (ANC) 9.7 K/uL (1.8-7.8); NEUTROPHIL % 75.5 %; NRBC % 0 /100WBC (0-0.00); PLATELET COUNT 383 K/uL (150-450); RBC 4.11 M/uL (3.50-5.50); RDW-CV 17.2 % (11.9-14.6); WBC 12.8 K/uL (4.0-11.0)
[2017-03-22 07:16] LABS: ALK PHOS 85 IU/L (33-138); ALT 27 IU/L (12-78); ANION GAP 9.3 (10.0-19.0); AST 12 IU/L (10-40); BLOOD UREA NITROGEN 10 mg/dL (6-24); CALCIUM 8.2 mg/dL (8.5-10.5); CHLORIDE 106 mMol/L (96-110); CO2 27 mMol/L (22-32); CREATININE 0.4 mg/dL (0.5-1.1); POTASSIUM 3.3 mMol/L (3.7-5.1); SODIUM 139 mMol/L (135-145); TOTAL BILIRUBIN 0.2 mg/dL (0.0-1.5); TOTAL PROTEIN 6.5 g/dL (6.0-8.4)
== END 2017-03-22 08:28 | disposition disaster alternative care site (69) ==
LOC: GMED 06:23
PROVIDERS: Emergency Medicine
DX: K59.00 Constipation, unspecified (principal); R11.2 Nausea with vomiting, unspecified

== ENCOUNTER → 2017-03-22 | Outpatient (CLI) | payer MEDICARE | END | disposition disaster alternative care site (69) | LOC: GAMB 05:50 | DX: R11.2 Nausea with vomiting, unspecified (principal); Q05.9 Spina bifida, unspecified; K56.60 Unspecified intestinal obstruction; F41.8 Other specified anxiety disorders; R53.1 Weakness; Z86.59 Personal history of other mental and behavioral disorders; Z87.448 Personal history of other diseases of urinary system; Z88.0 Allergy status to penicillin; Z88.5 Allergy status to narcotic agent; Z88.8 Allergy status to other drugs, medicaments and biological substances | CPT/HCPCS: A0425; A0429 ==